=== PATIENT | female | born 1985 | race Caucasian/White ===

== ENCOUNTER 2023-12-16 11:37 | Outpatient (CLI) | payer OTHER, SELFPAY ==
--- NOTE | 2023-12-16 11:00 | DI.RAD_ITS ---
Exam(s) XR KNEE LT 3V AP,LAT,ZACH EXAM: XR KNEE LT 3V AP,LAT,ZACH CLINICAL HISTORY: eval L knee OA, pain. TECHNIQUE: 2D digital imaging was performed. Three views. COMPARISON: CR XR KNEE RT 3V AP,LAT,ZACH from 12/16/2023 FINDINGS: BONES: No acute fracture is present. No bony destructive lesion is seen. JOINTS: Moderate narrowing of the medial femoral tibial joint. Periarticular spurring noted througho ut. No joint effusion is seen. SOFT TISSUE: Normal. IMPRESSION: Degenerative changes, greatest at the medial femoral tibial joint. DATA REPOSITORY: RADIATION DOSE DELIVERED:
--- NOTE | 2023-12-16 11:00 | DI.RAD_ITS ---
Exam(s) XR KNEE RT 3V AP,LAT,ZACH EXAM: XR KNEE RT 3V AP,LAT,ZACH CLINICAL HISTORY: eval R knee pain, OA. TECHNIQUE: 2D digital imaging was performed. Three views. COMPARISON: No exams were available for comparison FINDINGS: BONES: No acute fracture is present. No bony destructive lesion is seen. JOINTS: Moderate to severe narrowing of the medial femoral tibial joint. Some varus angulation prese nt. Periarticular spurring is noted throughout. No joint effusion is seen. SOFT TISSUE: Normal. IMPRESSION: Degenerative changes, greatest at the medial femoral tibial joint. DATA REPOSITORY: RADIATION DOSE DELIVERED:
== END 2023-12-16 11:38 | disposition home or self-care (01) ==
LOC: DIORS 11:37
PROVIDERS: PCP Internal Medicine; Visit Provider Student in an Organized Health Care Education/Training Program
DX: M17.0 Bilateral primary osteoarthritis of knee (principal)
CPT/HCPCS: 73562